=== PATIENT | male | born 1970 | race Hispanic/Latino ===

== ENCOUNTER 2019-10-07 21:09 | Inpatient (IN) | payer SELFPAY ==
[~2019-10-07] VITALS: Ht 170.2 cm; Wt 70.3 kg
[2019-10-07] MEDS ORDERED: ACETAMINOPHEN 325 MG TAB PO STA (21:24)
[2019-10-07] MEDS ORDERED: ASPIRIN 81 MG CHEW TAB PO ONE ×2 (21:30→22:30)
[2019-10-07 21:50] LABS: BASOPHILS # (AUTO) 0.1 (0.0-0.1); BASOPHILS % 0.4 % (0.0-1.0); EOSINOPHILS # (AUTO) 0.1 (0.0-0.4); EOSINOPHILS % 0.3 % (0.0-6.0); HEMATOCRIT 50.6 % (38.2-49.6); HEMOGLOBIN 17.2 g/dL (14.0-18.0); LYMPHOCYTES # (AUTO) 1.2 (1.0-3.2); LYMPHOCYTES % 6.2 % (18.0-39.1); MEAN CORPUSCULAR HEMOGLOBIN 29.8 pg (28-32); MEAN CORPUSCULAR VOLUME 87.7 fL (81-99); MONOCYTES % 5.1 % (4.4-11.3); NEUTROPHILS # (AUTO) 16.4 (2.1-6.9); NEUTROPHILS % 87.4 % (38.7-80.0); PLATELET COUNT 214 x10e3/uL (140-360); RED BLOOD COUNT 5.77 x10e6/uL (4.3-5.7); RED CELL DISTRIBUTION WIDTH 13.2 % (11.7-14.4)
[2019-10-07 21:55] LABS: AMPHETAMINES SCREEN,URINE NEGATIVE (NEGATIVE); BENZODIAZEPINES SCREEN,URINE NEGATIVE (NEGATIVE); BILIRUBIN,URINE NEGATIVE (NEGATIVE); CLARITY,URINE SL CLOUDY (CLEAR); COLOR,URINE STRAW (YELLOW); KETONES,URINE NEGATIVE (NEGATIVE); LEUKOCYTE ESTERASE ,URINE NEGATIVE (NEGATIVE); NITRITE,URINE NEGATIVE (NEGATIVE); PHENCYCLIDINE SCREEN,URINE NEGATIVE (NEGATIVE); PROTEIN,URINE DIPSTICK TRACE (NEGATIVE); URINE UROBILINOGEN 0.2 mg/dL (0.2 - 1)
[2019-10-07 22:05] LABS: BACTERIA,URINE FEW /HPF; EPITHELIAL CELLS,URINE FEW /LPF; MUCUS,URINE MODERATE (RARE)
[2019-10-07 22:12] LABS: ALANINE AMINOTRANSFERASE 10 IU/L (0-55); ALBUMIN 3.6 g/dL (3.5-5.0); ALBUMIN/GLOBULIN RATIO 0.8 (0.8-2.0); ALKALINE PHOSPHATASE 76 IU/L (40-150); ANION GAP 11.8 mmol/L (8-16); BLOOD UREA NITROGEN 7 mg/dL (7-26); BUN/CREATININE RATIO 8 (6-25); CALCIUM 9.5 mg/dL (8.4-10.2); CARBON DIOXIDE 27 mmol/L (22-29); CHLORIDE 100 mmol/L (98-107); CREATINE KINASE 54 IU/L (30-200); EST GLOMERULAR FILTRATION RATE > 60 ML/MIN (60-); GLUCOSE 116 mg/dL (74-118); LIPASE 7 U/L (8-78); POTASSIUM 3.8 mmol/L (3.5-5.1); SODIUM 135 mmol/L (136-145)
[2019-10-07] MEDS ORDERED: SODIUM CHLORIDE 0.9% 1000ML 1,000 ML IV SCH (22:15)
[2019-10-07 22:18] LABS: STREPTOCOCCUS GRP A ANTIGEN NEGATIVE (NEGATIVE)
[2019-10-07] MEDS: ONDANSETRON HCL INJ 2MG/ML 2ML 2 MG/ML VIAL IV PRN (22:48)
[2019-10-07] MEDS: MORPHINE SULFATE INJ 4 MG/ML INJ 1ML IV PRN (22:49)
[2019-10-07] MEDS: PIPER-TAZ 3.375 GM 50 ML IV SCH (22:50)
--- NOTE | 2019-10-07 22:54 | NUR ---
ER MD AND PRIMARY RN NOTIFIED AND AWARE OF LAB RESULTS; FLU A & B POSITIVE. NO NEW ORDERS AT THIS TIME.
[2019-10-07 22:58] LABS: INFLUENZAE A&B ANTIGEN (RAPID) POSITIVE FLU A&B (NEGATIVE)
--- NOTE | 2019-10-07 23:23 | Diagnostic Imaging Report ---
EXAMINATION: CHEST SINGLE (PORTABLE) INDICATION: Chest pain. COMPARISON: None FINDINGS: TUBES and LINES: None. LUNGS: Lungs are well inflated. Mild bronchial thickening. No evidence of pneumonia or pulmonary edema. PLEURA: No pleural effusion or pneumothorax. HEART AND MEDIASTINUM: The cardiomediastinal silhouette is unremarkable. BONES AND SOFT TISSUES: No acute osseous lesion. Soft tissues are unremarkable. UPPER ABDOMEN: No free air under the diaphragm. IMPRESSION: Mild bronchial wall thickening, which may represent bronchitis in the appropriate clinical setting. No evidence of pneumonia. Signed by: Dr. Mello Luna MD on 10/07/2019 11:19 PM
[2019-10-08] VITALS (8 sets, daily range): BP systolic 132–139; BP diastolic 75–87
[2019-10-08] MEDS: SODIUM CHLORIDE 0.9% 1000ML 1,000 ML IV SCH ×4 (01:38→21:03)
[2019-10-08] MEDS: OSELTAMIVIR PHOSPHATE 75 MG CAP PO SCH ×3 (01:40→17:00)
[2019-10-08] MEDS ORDERED: SODIUM CHLORIDE 0.9% 1000ML 1,000 ML IV ONE (02:00)
--- NOTE | 2019-10-08 04:38 | NUR ---
Patient transferred to unit from ER via wheelchair. Transferred to bed with minimal assistance, tolerated. Oriented to room and environment. Instructed to call for assistance on the onset of pain or SOB. Call light within reach. Teaching provided on pain and fall/safety.
[2019-10-08] MEDS: PIPER-TAZ 3.375 GM 50 ML IV SCH ×3 (05:18→17:00)
[2019-10-08] MEDS ORDERED: [UNRECOGNIZED DRUG - REMARK] (05:36)
[2019-10-08] MEDS: ONDANSETRON HCL INJ 2MG/ML 2ML 2 MG/ML VIAL IV PRN ×4 (06:19→20:46)
[2019-10-08] MEDS: MORPHINE SULFATE INJ 4 MG/ML INJ 1ML IV PRN ×4 (06:19→20:46)
--- NOTE | 2019-10-08 06:42 | NUR ---
Spoke with Dr Beckman, will see patient.
--- NOTE | 2019-10-08 06:45 | NUR ---
Received bedside shift report from off going nurse. Patient is resting in bed. No acute distress noted. Call light within reach. Bed in the lowest position.
--- NOTE | 2019-10-08 07:05 | NUR ---
Bedside report and walking rounds completed with oncoming nurse. Patient in bed with call light within reach. No issues or concerns noted. Bed locked and lowest position.
[2019-10-08 07:47] LABS: BASOPHILS # (AUTO) 0.1 (0.0-0.1); BASOPHILS % 0.4 % (0.0-1.0); EOSINOPHILS # (AUTO) 0.1 (0.0-0.4); EOSINOPHILS % 0.6 % (0.0-6.0); HEMATOCRIT 48.3 % (38.2-49.6); HEMOGLOBIN 16.3 g/dL (14.0-18.0); LYMPHOCYTES # (AUTO) 1.1 (1.0-3.2); LYMPHOCYTES % 6.7 % (18.0-39.1); MEAN CORPUSCULAR HEMOGLOBIN 29.7 pg (28-32); MEAN CORPUSCULAR HGB CONC 33.7 g/dL (31-35); MEAN CORPUSCULAR VOLUME 88.1 fL (81-99); MONOCYTES # (AUTO) 1.1 (0.2-0.8); MONOCYTES % 7.1 % (4.4-11.3); NEUTROPHILS # (AUTO) 13.3 (2.1-6.9); NEUTROPHILS % 84.7 % (38.7-80.0); PLATELET COUNT 184 x10e3/uL (140-360); RED BLOOD COUNT 5.48 x10e6/uL (4.3-5.7); RED CELL DISTRIBUTION WIDTH 13.2 % (11.7-14.4)
[2019-10-08 08:28] LABS: ALANINE AMINOTRANSFERASE 403 IU/L (0-55); ALBUMIN 2.8 g/dL (3.5-5.0); ALBUMIN/GLOBULIN RATIO 0.7 (0.8-2.0); ALKALINE PHOSPHATASE 127 IU/L (40-150); ANION GAP 11.1 mmol/L (8-16); BLOOD UREA NITROGEN 7 mg/dL (7-26); BUN/CREATININE RATIO 9 (6-25); CALCIUM 8.7 mg/dL (8.4-10.2); CARBON DIOXIDE 27 mmol/L (22-29); CHLORIDE 102 mmol/L (98-107); CREATININE, SERUM 0.78 mg/dL (0.72-1.25); EST GLOMERULAR FILTRATION RATE > 60 ML/MIN (60-); GLUCOSE 110 mg/dL (74-118); POTASSIUM 4.1 mmol/L (3.5-5.1); SODIUM 136 mmol/L (136-145)
[2019-10-08 09:31] LABS: CREATINE KINASE MB 1.7 ng/mL (0-5.0)
[2019-10-08 11:18] LABS: ALBUMIN 2.7 g/dL (3.5-5.0); BILIRUBIN,DIRECT 4.8 mg/dL (0.0-0.5)
[2019-10-08 11:21] LABS: AMYLASE 71 U/L (25-125); LIPASE 50 U/L (8-78)
--- NOTE | 2019-10-08 12:12 | Diagnostic Imaging Report ---
EXAM: Right upper quadrant abdominal ultrasound INDICATION: Elevated bilirubin COMPARISON: None. TECHNIQUE: Transverse and longitudinal images of the right upper quadrant abdomen were obtained FINDINGS: Liver: Size: 17.7 cm in the right midclavicular line, mildly enlarged Appearance: Normal echogenicity, smooth contour Mass: No focal masses Gallbladder: There is a 2.2 cm echogenic calculus in the gallbladder as well as dependent layering sludge. The gallbladder wall measures 4 mm. No pericholecystic fluid or gallbladder distention. Positive sonographic Bauer's sign. Bile Ducts: Intrahepatic Ducts: No dilatation Extrahepatic Ducts: Common bile duct measures 3 mm Pancreas: Not visualized due to overlying bowel gas. Kidney: The right kidney measures 10.0 cm without evidence of hydronephrosis or stone. Vessels: Aorta: Visualized portions are normal Inferior Vena Cava: Visualized portions are normal Main Portal Vein: Not well-visualized. Free Fluid: No ascites or pleural effusion IMPRESSION: Cholelithiasis and sonographic findings suggestive of acute cholecystitis. Mild hepatomegaly. Signed by: Alfredo Deng MD on 10/08/2019 12:09 PM
--- NOTE | 2019-10-08 19:08 | NUR ---
Bedside shift report given to oncoming nurse. Patient is resting in bed. No acute distress noted. SCDs applied as ordered by Dr. Raymond. Call light within reach. Bed in the lowest position.
--- NOTE | 2019-10-08 19:09 | NUR ---
Received change of shift report from AM nurse. Walking rounds completed.
--- NOTE | 2019-10-08 19:45 | NUR ---
Patient taken off the floor for MRI.
--- NOTE | 2019-10-08 20:15 | NUR ---
Patient returned to the floor. Requested pain and nausea meds for pain.
--- NOTE | 2019-10-08 20:41 | History and Physical ---
HISTORY OF PRESENT ILLNESS: This is a 49-year-old gentleman, who comes in with abdominal pain in right upper quadrant, comes in with chest pain like symptoms. Cardiology consult was done. The patient is admitted to the hospital with flu positive and also had elevated bilirubin suggestive of acute cholecystitis and surgical consult has been ordered. PAST MEDICAL HISTORY: Noncontributory. PAST SURGICAL HISTORY: Noncontributory. SOCIAL HISTORY: Positive for history of cocaine, stays when the pain is unbearable, the patient took 1 line of cocaine for pain only apparently. Drug abuse. No EtOH. No smoking history. REVIEW OF SYSTEMS: Positive for chest pain. Positive for shortness of breath. Positive for nausea. No vomiting. No diarrhea. No constipation. No rectal bleeding. No hematochezia. No hematemesis. Positive for abdominal pain. FAMILY HISTORY: Noncontributory. PHYSICAL EXAMINATION: VITAL SIGNS: Temperature is 99.0, pulse of 68, respirations of 20, blood pressure is 138/75, pulse oximetry of 99%. HEENT: The patient has icterus. CVS: S1 and S2 normal. Regular rhythm. ABDOMEN: Tender in the right upper quadrant. EXTREMITIES: No clubbing, no cyanosis, no edema. LABORATORY VALUES: White count is 18,000, hemoglobin 17.2, hematocrit of 40.6, neutrophil count is 87.4. Chemistries; lactic acid was 2.4, down to 2.2. AST and ALT 351 and 403, alkaline phosphatase is 127. Toxicology; positive for cocaine. Urine was moderate amount of mucus. Serology positive for type A and B flu and cocaine positive. MICROBIOLOGY: Throat culture is pending. ASSESSMENT: Mr. Raj Sher with: 1. Acute cholecystitis. 2. Type A and type B flu. 3. Cocaine abuse and chest pain. Cardiology consult was ordered. Surgical consult will be ordered. MRCP will be ordered to rule out stone in the pancreatic and common bile duct. Continue to monitor the patient. The patient is on Tamiflu. Further recommendation per clinical course. We will continue to monitor the patient along with consultants. MD LUIZ Babin/EMMANUEL /[id number]
--- NOTE | 2019-10-08 21:00 | NUR ---
Patient received pain and nausea meds. Gen pain =7. Continue monitor.
--- NOTE | 2019-10-08 21:22 | Diagnostic Imaging Report ---
EXAM: MRI MRCP WO DATE: 10/08/2019 6:14 PM Time stamp on exam: INDICATION: Abnormal findings on ultrasound. COMPARISON: Same the right upper quadrant ultrasound. TECHNIQUE: MRCP protocol performed using1.5 Robina. Sequences obtained include axial T2 FRFSE FS, coronal and axial T2 SSFSE, SSFSE coronal spins. FINDINGS: Bibasilar dependent atelectasis. 1.5 cm T2 hyperintense right hepatic lobe lesion (series 5, image 31), could represent a cyst, however cannot be fully characterized without intravenous contrast. 2.3 cm gallstone in gallbladder neck. The gallbladder is distended and there is gallbladder wall thickening. Small amount of peripancreatic fluid. Common bile duct is within normal limits. No splenomegaly. Pancreas is grossly unremarkable. No ductal dilatation. No hydronephrosis. Left inferior pole parapelvic cyst. Visualized bowel loops are grossly unremarkable. No evidence of bowel obstruction. IMPRESSION: 2.3 cm gallstone in gallbladder neck along with wall thickening and pericholecystic fluid, highly concerning for acute cholecystitis. No common bile duct dilatation. Signed by: Dr. Dipesh Luque MD on 10/08/2019 9:19 PM
[2019-10-09] VITALS (7 sets, daily range): BP systolic 102–116; BP diastolic 56–72
[2019-10-09] MEDS: ONDANSETRON HCL INJ 2MG/ML 2ML 2 MG/ML VIAL IV PRN ×5 (00:30→23:00)
[2019-10-09] MEDS: MORPHINE SULFATE INJ 4 MG/ML INJ 1ML IV PRN ×5 (00:30→23:00)
[2019-10-09] MEDS: PIPER-TAZ 3.375 GM 50 ML IV SCH ×4 (05:49→17:37)
--- NOTE | 2019-10-09 06:42 | NUR ---
Bedside shift report received from night nurse. Patient is resting in bed. No acute distress noted. Call light within reach. Bed in the lowest position.
[2019-10-09 06:43] LABS: BASOPHILS # (AUTO) 0.1 (0.0-0.1); BASOPHILS % 0.3 % (0.0-1.0); EOSINOPHILS # (AUTO) 0.2 (0.0-0.4); EOSINOPHILS % 1.1 % (0.0-6.0); HEMATOCRIT 44.5 % (38.2-49.6); LYMPHOCYTES # (AUTO) 1.3 (1.0-3.2); LYMPHOCYTES % 6.9 % (18.0-39.1); MEAN CORPUSCULAR HEMOGLOBIN 29.5 pg (28-32); MEAN CORPUSCULAR HGB CONC 33.7 g/dL (31-35); MEAN CORPUSCULAR VOLUME 87.4 fL (81-99); MONOCYTES # (AUTO) 1.1 (0.2-0.8); PLATELET COUNT 190 x10e3/uL (140-360); RED BLOOD COUNT 5.09 x10e6/uL (4.3-5.7); RED CELL DISTRIBUTION WIDTH 13.3 % (11.7-14.4)
[2019-10-09 07:07] LABS: ALANINE AMINOTRANSFERASE 205 IU/L (0-55); ALBUMIN 2.6 g/dL (3.5-5.0); ALBUMIN/GLOBULIN RATIO 0.7 (0.8-2.0); ALKALINE PHOSPHATASE 135 IU/L (40-150); ANION GAP 10.8 mmol/L (8-16); BLOOD UREA NITROGEN 5 mg/dL (7-26); BUN/CREATININE RATIO 6 (6-25); CALCIUM 8.8 mg/dL (8.4-10.2); CARBON DIOXIDE 24 mmol/L (22-29); CHLORIDE 99 mmol/L (98-107); CREATININE, SERUM 0.77 mg/dL (0.72-1.25); EST GLOMERULAR FILTRATION RATE > 60 ML/MIN (60-); GLUCOSE 92 mg/dL (74-118); MAGNESIUM 1.9 MG/DL (1.3-2.1); POTASSIUM 3.8 mmol/L (3.5-5.1); SODIUM 130 mmol/L (136-145)
[2019-10-09] MEDS ORDERED: BUPIVACAINE HCL 0.5% INJ 30 ML VIAL INJ ONE (07:45)
[2019-10-09] MEDS: OSELTAMIVIR PHOSPHATE 75 MG CAP PO SCH ×2 (08:05→17:37)
--- NOTE | 2019-10-09 08:28 | Progress Note ---
DATE: SUBJECTIVE: A 49-year-old male who came in with acute cholecystitis, type A and B flu positive. The patient underwent an MRCP yesterday to rule out common bile duct stones. The patient is free of stones. Scheduled for Dr. Richter to take his gallbladder out. OBJECTIVE: GENERAL: Alert and oriented x3, still in pain, jaundiced. CVS: S1, S2 normal. Regular rate and rhythm. ABDOMEN: Tender at the right upper quadrant. EXTREMITIES: No clubbing, no cyanosis, no edema. LABORATORY STUDIES: White count is 18,000, hemoglobin of 15, hematocrit of 44.5, neutrophil count is 85. Chemistries pending. Total bilirubin yesterday was 6.8 with AST of 215, ALT of 343. Toxicology positive for urine cocaine, and influenza A and B positive. ASSESSMENT: Mr. Raj Sher with: 1. Acute cholecystitis. Scheduled laparoscopic cholecystectomy today. 2. Type A and type B flu, continue on Tamiflu. 3. Cocaine abuse and chest pain. PLAN: A Cardiology consult has been done. Look if his troponin has been trended to be negative. Further recommendation per clinical course and also to observe the patient after cholecystectomy. MD LUIZ Babin/LEIAL /[id number]
--- NOTE | 2019-10-09 08:36 | NUR ---
Patient off unit for procedure at this time.
--- NOTE | 2019-10-09 09:08 | Consultation ---
DATE OF CONSULTATION: 10/09/2019 HISTORY OF PRESENT ILLNESS: The patient is a 49-year-old male, presents with complaints of epigastric abdominal pain with chest pain, admitted to the hospital 2 days ago with chest pain. He had cardiac evaluation, which was negative for cardiac disease, however, he was found to have gallstones and also developed elevated bilirubin. MRCP was done, which revealed gallstone in the gallbladder neck, but no common bile duct stones. The patient says his pain is somewhat less now. He has had epigastric pain off and on for quite a while, but never this severe. PAST MEDICAL HISTORY: Unremarkable. He denies chronic medical problems. PAST SURGICAL HISTORY: He has not had previous surgery. ALLERGIES: THERE ARE NO KNOWN ALLERGIES. MEDICATIONS: No current medications. FAMILY HISTORY: Noncontributory. SOCIAL HISTORY: The patient does not smoke cigarettes or drink alcohol. REVIEW OF SYSTEMS: As stated above, otherwise was negative. PHYSICAL EXAMINATION: GENERAL: The patient is awake and alert, in no distress. VITAL SIGNS: Normal with no tachycardia, but temperature 99.9. HEENT: Sclerae is not icteric. NECK: Has no masses. LUNGS: Equal breath sounds, are clear bilaterally. CARDIAC: Regular rate and rhythm with no murmur. ABDOMEN: Tender in the epigastrium and right upper quadrant. There is no distention, no mass, no organomegaly. EXTREMITIES: Have no edema. NEUROLOGIC: Grossly intact. LABORATORY TESTS: The white blood cell count is 18.8, which is the same as it was on admission, slightly elevated. Hemoglobin and hematocrit are normal. Chemistries; the bilirubin was 6.8 yesterday with normal on admission. ASSESSMENT: A 49-year-old male with acute cholecystitis and cholelithiasis, currently is also tested positive for the flu. He has been on treatment for this. PLAN: Laparoscopic cholecystectomy. Procedure has been explained to the patient including risks, benefits, and alternatives. He understands. He has had the opportunity to ask questions. He is aware of the possible need for open surgery. Thank you for asking me to see Mr. hSer. MD TIARA Padilla/EMMANUEL /[id number]
[2019-10-09] MEDS ORDERED: SUGAMMADEX SODIUM 200 MG/2 ML VIAL IV ONE (09:28)
--- NOTE | 2019-10-09 09:53 | NUR ---
GAVE PACKET OF INFORMATION WITH COMMUNITY RESOURCES FOR ASSISTANCE WITH LOW TO NO INCOME TO PATIENT. RESOURCES THAT PATIENT MAY BE ABLE TO FOLLOW UP UPON DISCHARGE. PT EDUCATED ON EACH RESOURCE AND UNDERSTANDING HOW TO FOLLOW UP TO SEE IF QUALIFIED FOR EACH RESOURCE.
--- NOTE | 2019-10-09 10:40 | NUR ---
Patient back to room at this time, he is in stable condition.
[2019-10-09] MEDS: SODIUM CHLORIDE 0.9% 1000ML 1,000 ML IV SCH ×3 (10:50→20:02)
--- NOTE | 2019-10-09 11:04 | Operative Report ---
DATE OF PROCEDURE: 10/09/2019 SURGEON: Vasu Richter MD PREOPERATIVE DIAGNOSES: Acute cholecystitis, cholelithiasis. POSTOPERATIVE DIAGNOSES: Acute cholecystitis, cholelithiasis. PROCEDURES: Diagnostic laparoscopy, laparoscopic cholecystectomy. SENIOR INTERIOR DESIGNER: None. ANESTHESIA: General endotracheal. INDICATIONS AND FINDINGS: The patient is a 49-year-old male, who was admitted to the hospital with complaints of chest pain, epigastric pain. Workup revealed acute cholecystitis with cholelithiasis. At Surgery, based on the gallbladder was distended and edematous with adherent small bowel and colon over the neck and fundus of the gallbladder. There was a large stone impacting the gallbladder neck. TECHNIQUE: After adequate general endotracheal anesthesia, the patient in supine position, the abdomen was prepped and draped in sterile fashion with ChloraPrep solution. Skin in the umbilicus was infiltrated with 0.5% Marcaine. Incision was made in the umbilicus. Abdominal wall was elevated and Veress needle was introduced. Pneumoperitoneum was then created. A 10 mm trocar and cannula was then passed through the umbilical wound. Laparoscopic camera was introduced. Initial laparoscopy revealed inflammatory process to right upper quadrant. A 10 mm trocar and cannula were placed in the epigastrium and two 5 mm trocars and cannulas were placed in the right upper quadrant, these were placed under direct vision. There was small bowel as well as colon adherent over the acutely inflamed gallbladder, is mostly fibrinous adhesions, these were bluntly broken up. Care was taken not to injure the bowel and the small bowel and colon retracted away from the gallbladder, which was tense and edematous, and inflamed gallbladder was decompressed with a needle. The fundus was then grasped retracted superiorly. Neck of the gallbladder was grasped, retracted laterally. There was a large stone in the gallbladder neck, which was pushed back into the gallbladder fundus. Peritoneum over the neck of the gallbladder was incised. The gallbladder/cystic duct junction was dissected free. Cystic artery was also dissected free. The neck of the gallbladder completely dissected free. Cystic duct was divided between hemoclips with three clips being left on the common bile duct side. Cystic artery was also divided between hemoclips close to the gallbladder. There was a posterior branch of cystic artery was also divided between hemoclips. The gallbladder was dissected free from the liver using scissors and electrocautery. Once it was entirely free, it was placed into an Endopouch and brought through the epigastric cannula. There was one large stone. The gallbladder bed was inspected for hemostasis, which was seen to be adequate, it was irrigated with saline. All fluid aspirated and inspected for hemostasis, which was seen to be adequate. Instruments and cannulas were removed. Pneumoperitoneum was evacuated. Wounds were then closed. Fascia in the umbilical and epigastric wound closed with 0 Vicryl. Skin to all wounds closed with danika. Sterile dressings applied to each wound. The patient tolerated the procedure well. Estimated blood loss was 75 mL. There were no complications. All counts were correct. The patient was taken to the recovery room in satisfactory condition. MD TIARA Padilla/MODL /[id number]
--- NOTE | 2019-10-09 11:06 | NUR ---
RD attempted to assess pt. Pt has gone to OR.
[2019-10-09] MEDS: HYDROCODONE/APAP 7.5MG-325MG 1 EA TAB PO PRN ×2 (14:50→20:02)
[2019-10-09] MEDS ORDERED: EYE LUBRICANT OPTH OINT 3.5GM TUBE OP ONE (18:35)
[2019-10-09] MEDS ORDERED: ROCURONIUM BROMIDE 10 MG/ML 5ML VIAL IV ONE (18:35)
[2019-10-09] MEDS ORDERED: PROPOFOL IV EMULSION 10 MG/ML 20 ML VIAL ONE (18:35)
[2019-10-09] MEDS ORDERED: LIDOCAINE HCL 2% LOCAL INJ 5 ML SDV VIAL INJ ONE (18:35)
[2019-10-09] MEDS ORDERED: SEVOFLURANE INHAL SOLN 250 ML PEN BTL ONE (18:35)
[2019-10-09] MEDS ORDERED: LIDOCAINE HCL 2% JELLY 5 ML TUBE ONE (18:35)
[2019-10-09] MEDS ORDERED: ONDANSETRON HCL INJ 2MG/ML 2ML 2 MG/ML VIAL ONE (18:35)
[2019-10-09] MEDS ORDERED: FENTANYL CITRATE/PF 100MCG/2 ML INJ ONE (18:58)
[2019-10-09] MEDS ORDERED: MIDAZOLAM HCL 2 MG/2 ML VIAL ONE (18:58)
--- NOTE | 2019-10-09 19:36 | NUR ---
Bedside shift report given to oncoming nurse. Patient is resting in bed. No acute distress noted. Call light within reach. Bed in the lowest position.
--- NOTE | 2019-10-09 19:52 | NUR ---
Received change of shift report from AM nurse. Walking rounds completed.
[2019-10-10] VITALS (7 sets, daily range): BP systolic 91–109; BP diastolic 47–60
[2019-10-10] MEDS: MORPHINE SULFATE INJ 4 MG/ML INJ 1ML IV PRN ×6 (03:08→22:43)
[2019-10-10] MEDS: ONDANSETRON HCL INJ 2MG/ML 2ML 2 MG/ML VIAL IV PRN ×4 (03:09→22:43)
[2019-10-10] MEDS: PIPER-TAZ 3.375 GM 50 ML IV SCH ×4 (05:32→21:26)
[2019-10-10] MEDS: HYDROCODONE/APAP 7.5MG-325MG 1 EA TAB PO PRN ×3 (05:39→13:45)
[2019-10-10 06:33] LABS: BASOPHILS # (AUTO) 0.1 (0.0-0.1); BASOPHILS % 0.5 % (0.0-1.0); EOSINOPHILS # (AUTO) 0.2 (0.0-0.4); EOSINOPHILS % 1.4 % (0.0-6.0); HEMATOCRIT 40.5 % (38.2-49.6); HEMOGLOBIN 13.3 g/dL (14.0-18.0); LYMPHOCYTES # (AUTO) 1.4 (1.0-3.2); LYMPHOCYTES % 10.7 % (18.0-39.1); MEAN CORPUSCULAR HEMOGLOBIN 28.9 pg (28-32); MEAN CORPUSCULAR HGB CONC 32.8 g/dL (31-35); MONOCYTES # (AUTO) 0.9 (0.2-0.8); MONOCYTES % 6.7 % (4.4-11.3); NEUTROPHILS # (AUTO) 10.6 (2.1-6.9); NEUTROPHILS % 80.1 % (38.7-80.0); PLATELET COUNT 202 x10e3/uL (140-360); RED CELL DISTRIBUTION WIDTH 13.4 % (11.7-14.4)
[2019-10-10 06:51] LABS: ALANINE AMINOTRANSFERASE 114 IU/L (0-55); ALBUMIN 2.1 g/dL (3.5-5.0); ALBUMIN/GLOBULIN RATIO 0.6 (0.8-2.0); ALKALINE PHOSPHATASE 123 IU/L (40-150); ANION GAP 9.7 mmol/L (8-16); BLOOD UREA NITROGEN 6 mg/dL (7-26); BUN/CREATININE RATIO 8 (6-25); CALCIUM 8.3 mg/dL (8.4-10.2); CARBON DIOXIDE 25 mmol/L (22-29); CHLORIDE 102 mmol/L (98-107); CREATININE, SERUM 0.71 mg/dL (0.72-1.25); EST GLOMERULAR FILTRATION RATE > 60 ML/MIN (60-); GLUCOSE 81 mg/dL (74-118); POTASSIUM 3.7 mmol/L (3.5-5.1); SODIUM 133 mmol/L (136-145)
--- NOTE | 2019-10-10 07:57 | Progress Note ---
DATE: SUBJECTIVE: A 49-year-old gentleman, who came in with chest pain and also was found to have sepsis. The patient had type A, type B flu positive. Also, was found to have acute cholecystitis. Antibiotics were started. Tamiflu was started. The patient was taken down to surgery by Dr. Richter yesterday. Successful cholecystectomy. Still has some pain. No chest pains. No shortness of breath at this time. OBJECTIVE: VITAL SIGNS: Temperature is 98.8, pulse of 66, respirations of 18, blood pressure is 92/47, pulse oximetry of 98%. HEENT: Normocephalic and atraumatic. Icterus is down. CVS: S1 and S2 normal. Regular rate and rhythm. ABDOMEN: Nontender, nondistended. Soft. EXTREMITIES: No clubbing, no cyanosis, no edema. Trocar sites are normal. ASSESSMENT: Mr. Raj Prescott with: 1. Acute cholecystitis, status post surgery. 2. Type A, type B influenza. 3. History of cocaine abuse. 4. History of fever. The patient [place] [address], hemoglobin of 13.3, hematocrit of 40. Chemistries are very stable. Creatinine 0.71. PLAN: Continue to monitor the patient for pain and check his laboratory values. Plan to discharge tomorrow depending on his clinical status. Further recommendation per clinical course and his bilirubin is down to 3.0. Additional diagnosis includes acute sepsis. MD LUIZ Babin/MODL /[id number]
[2019-10-10] MEDS: OSELTAMIVIR PHOSPHATE 75 MG CAP PO SCH ×2 (09:35→18:09)
[2019-10-10] MEDS: SODIUM CHLORIDE 0.9% 1000ML 1,000 ML IV SCH ×2 (13:50→14:22)
--- NOTE | 2019-10-10 16:54 | NUR ---
Nutrition Intervention Note RD Recommendation(s) for Physician: -Recommend Ensure Enlive BID for added nutrition -Continue regular diet Plan of Care: RD following, monitoring for tolerance and adequacy Nutrition reason for involvement: Nutrition Risk Trigger MST 3 RD Assessment (10/10/19) Pt is a 49 year old male admitted with chest pain and sepsis. Pt also was positive for the flu and is on droplet isolation. RD called pts bedside phone. Pt reports eating <50% of his meals for the past 5 days. Pt also reported he had weighed 200 lbs a month ago and now weighs 175 lbs. However, pt has a weight of 154 lbs in chart. There are no previous weights in chart; therefore, unable to accurately assess or verify weight status at this time. Pt also reports N/V. Recommend Ensure Enlive BID for added nutrition. Provided recommendation to RN. Will continue to monitor. Principal Problems/Diagnoses: chest pain and sepsis PMH: none I/O: 240/300 GI: soft, non-tender abdomen Skin: intact Labs: (10/09) Na 133, BUN 6, Cr 0.71, Ca 8.3 Meds: antibiotic, zofran Ht: 67 inches Wt: 154 lbs BMI: 24.2 kg/m2 IBW: 148 lbs Malnutrition Evaluation (10/10/19) The patient does not meet criteria for a specified degree of malnutrition at this time. Will re-evaluate at follow-up as appropriate. Energy intake: <50% of estimated energy requirements for 5 days per pt report Weight loss: Unable to accurately assess Fat loss: unable to evaluate, Muscle loss: unable to evaluate Supporting Evidence: Fluid accumulation: no edema per MD note Functional Status: unable to evaluate Nutrition Prescription (Diet Order): Regular Estimated Nutritional Needs: 7952-4384 calories/day (25-35 kcal/kg CBW) 70-105 g protein/day (1-1.5 g pro/kg CBW) Diet Adequacy: Not meeting calorie needs, Not meeting protein needs per pt report Tolerance: Pt reports N/V Diet Education Needs Assessment: Diet education not indicated; patient on regular diet. Nutrition Care Level: moderate Nutrition Diagnosis: Inadequate energy intake related to decreased ability to consume sufficient energy as evidenced by pt reports eating <50% of meals for the past 5 days Goal: Patient will meet 75-100% of estimated needs by follow up Progress: N/A Interventions: -General healthful diet, Commercial beverage Monitoring/Evaluation: -Total energy intake, Total protein intake, Liquid supplement, Weight change Signed: Ira Rubin RD, LD
--- NOTE | 2019-10-10 19:25 | NUR ---
received report from day nurse. patient is resting comfortably in the bed. bed is in lowest position and call light is within reach. patient denies pain or discomfort. will continue to monitor patient.
[2019-10-11] VITALS (8 sets, daily range): BP systolic 99–135; BP diastolic 54–77
[2019-10-11] MEDS: PIPER-TAZ 3.375 GM 50 ML IV SCH ×4 (01:57→20:30)
[2019-10-11] MEDS: SODIUM CHLORIDE 0.9% 1000ML 1,000 ML IV SCH ×2 (03:00→12:13)
[2019-10-11 06:32] LABS: BASOPHILS # (AUTO) 0.1 (0.0-0.1); BASOPHILS % 0.4 % (0.0-1.0); EOSINOPHILS # (AUTO) 0.3 (0.0-0.4); EOSINOPHILS % 1.9 % (0.0-6.0); HEMATOCRIT 43.5 % (38.2-49.6); HEMOGLOBIN 14.2 g/dL (14.0-18.0); MEAN CORPUSCULAR HEMOGLOBIN 28.8 pg (28-32); MEAN CORPUSCULAR HGB CONC 32.6 g/dL (31-35); MEAN CORPUSCULAR VOLUME 88.2 fL (81-99); MONOCYTES # (AUTO) 0.8 (0.2-0.8); MONOCYTES % 6.1 % (4.4-11.3); NEUTROPHILS # (AUTO) 10.7 (2.1-6.9); NEUTROPHILS % 83.1 % (38.7-80.0); PLATELET COUNT 274 x10e3/uL (140-360); RED BLOOD COUNT 4.93 x10e6/uL (4.3-5.7); RED CELL DISTRIBUTION WIDTH 13.2 % (11.7-14.4)
[2019-10-11 06:47] LABS: ANION GAP 11.5 mmol/L (8-16); BLOOD UREA NITROGEN 6 mg/dL (7-26); BUN/CREATININE RATIO 8 (6-25); CALCIUM 8.6 mg/dL (8.4-10.2); CARBON DIOXIDE 26 mmol/L (22-29); CHLORIDE 101 mmol/L (98-107); CREATININE, SERUM 0.74 mg/dL (0.72-1.25); EST GLOMERULAR FILTRATION RATE > 60 ML/MIN (60-); GLUCOSE 94 mg/dL (74-118); POTASSIUM 3.5 mmol/L (3.5-5.1); SODIUM 135 mmol/L (136-145)
--- NOTE | 2019-10-11 07:10 | NUR ---
report given to morning nurse. bedside shift report complete. patient is resting in bed. bed is in lowest position and call light is within reach.
[2019-10-11] MEDS: OSELTAMIVIR PHOSPHATE 75 MG CAP PO SCH ×2 (08:18→18:30)
[2019-10-11] MEDS ORDERED: BISACODYL 10 MG SUPP PR PRN (09:00)
--- NOTE | 2019-10-11 10:01 | Progress Note ---
DATE: SUBJECTIVE: This patient came into the hospital with flu type A and type B. The patient also had acute cholecystitis, status post cholecystectomy. The patient is still feeling some abdominal pain and also some chest congestion. OBJECTIVE: VITAL SIGNS: Temperature is 98.9, pulse of 62, respirations of 18, blood pressure is 99/54, pulse oximetry of 92%. HEENT: Normocephalic and atraumatic. Pupils are reactive. CVS: S1 and S2 are normal. Regular rate and rhythm. ABDOMEN: Slightly distended. EXTREMITIES: No clubbing, no cyanosis, no edema. LABORATORY VALUES: White count is 12.93, neutrophil count is 83, lymphocytes of 8. Chemistries show sodium 135, BUN of 6, creatinine of 0.74. ALT and AST have normalized. ASSESSMENT: Mr. Raj Sher with: 1. Cholecystitis, status post laparoscopic cholecystectomy. 2. History of type A and type B flu. Continue oseltamivir. 3. Abdominal pain. Continue monitoring it. 4. Leukocytosis with history of flu. Continue with medications. We will keep the patient in- house and not discharge him today in lieu of his abdominal pain and also elevated white count. Further recommendation per clinical course. MD LUIZ Babin/EMMANUEL /[id number]
[2019-10-11] MEDS: MORPHINE SULFATE INJ 4 MG/ML INJ 1ML IV PRN ×2 (15:39→20:38)
[2019-10-11] MEDS: ONDANSETRON HCL INJ 2MG/ML 2ML 2 MG/ML VIAL IV PRN ×2 (15:39→20:38)
[2019-10-12] VITALS (8 sets, daily range): BP systolic 105–123; BP diastolic 65–76
[2019-10-12] MEDS: PIPER-TAZ 3.375 GM 50 ML IV SCH ×4 (01:34→19:47)
[2019-10-12] MEDS: SODIUM CHLORIDE 0.9% 1000ML 1,000 ML IV SCH (02:00)
[2019-10-12] MEDS: ONDANSETRON HCL INJ 2MG/ML 2ML 2 MG/ML VIAL IV PRN ×4 (03:43→23:50)
[2019-10-12] MEDS: MORPHINE SULFATE INJ 4 MG/ML INJ 1ML IV PRN ×4 (03:43→23:50)
--- NOTE | 2019-10-12 06:42 | NUR ---
PATIENT IS RESTING IN BED. NO SIGNS OF DISTRESS NOTED. BED IS IN LOWEST POSITION AND CALL LIGHT IS WITHIN REACH.
[2019-10-12 08:05] LABS: BASOPHILS % 0.4 % (0.0-1.0); EOSINOPHILS # (AUTO) 0.4 (0.0-0.4); EOSINOPHILS % 3.6 % (0.0-6.0); HEMATOCRIT 40.1 % (38.2-49.6); HEMOGLOBIN 13.3 g/dL (14.0-18.0); LYMPHOCYTES # (AUTO) 1.6 (1.0-3.2); LYMPHOCYTES % 14.7 % (18.0-39.1); MEAN CORPUSCULAR HEMOGLOBIN 29.1 pg (28-32); MEAN CORPUSCULAR HGB CONC 33.2 g/dL (31-35); MEAN CORPUSCULAR VOLUME 87.7 fL (81-99); MONOCYTES # (AUTO) 0.9 (0.2-0.8); MONOCYTES % 8.2 % (4.4-11.3); NEUTROPHILS % 72.7 % (38.7-80.0); PLATELET COUNT 306 x10e3/uL (140-360); RED BLOOD COUNT 4.57 x10e6/uL (4.3-5.7); RED CELL DISTRIBUTION WIDTH 13.2 % (11.7-14.4)
[2019-10-12 08:22] LABS: ALANINE AMINOTRANSFERASE 55 IU/L (0-55); ALBUMIN/GLOBULIN RATIO 0.5 (0.8-2.0); ALKALINE PHOSPHATASE 238 IU/L (40-150); ANION GAP 11.7 mmol/L (8-16); BLOOD UREA NITROGEN 5 mg/dL (7-26); BUN/CREATININE RATIO 7 (6-25); CALCIUM 8.2 mg/dL (8.4-10.2); CARBON DIOXIDE 26 mmol/L (22-29); CHLORIDE 103 mmol/L (98-107); CREATININE, SERUM 0.71 mg/dL (0.72-1.25); EST GLOMERULAR FILTRATION RATE > 60 ML/MIN (60-); GLUCOSE 104 mg/dL (74-118); POTASSIUM 3.7 mmol/L (3.5-5.1); SODIUM 137 mmol/L (136-145)
[2019-10-12] MEDS: OSELTAMIVIR PHOSPHATE 75 MG CAP PO SCH ×2 (08:42→16:54)
--- NOTE | 2019-10-12 10:39 | Progress Note ---
DATE: SUBJECTIVE: A 49-year-old male comes in with acute cholecystitis and also with influenza. Currently feeling better, but still continues abdominal pain. No chest pain. No shortness of breath. OBJECTIVE: VITAL SIGNS: Temperature is 98.4, pulse is 57, respirations of 18, blood pressure is 112/89. HEENT: Normocephalic, atraumatic. CVS: S1 and S2 normal. Regular rate and rhythm. ABDOMEN: Soft. EXTREMITIES: No clubbing, no cyanosis, no edema. Possible bowel sounds. No bowel movements yet by the patient. LABORATORY VALUES: White count is still up to 12.93, hemoglobin 14.2, hematocrit of 43.5. Chemistries; sodium of 135, potassium 3.5. IMAGING STUDIES: No imaging studies were done. ASSESSMENT: Mr. Raj Sher with: 1. Cholecystitis, status post laparoscopic cholecystectomy. 2. Type 2 and type B flu. Continue on oseltamivir. 3. Abdominal pain. Continue monitoring the pain. 4. Leukocytosis. We will continue with current antibiotic in lieu of his abdominal pain and his still elevated white count. We will still keep the patient in the hospital for one more day. Possible discharge tomorrow. MD LUIZ Babin/LEIAL /[id number]
[2019-10-12] MEDS ORDERED: SIMETHICONE 80 MG CHEW PO PRN (17:00)
--- NOTE | 2019-10-12 18:25 | NUR ---
patient resting in bed, On IV fluids, trochar site on abdomen is intact, no distress noted
[2019-10-13] VITALS: BP 120/70
[2019-10-13] MEDS: PIPER-TAZ 3.375 GM 50 ML IV SCH ×2 (01:20→08:03)
[2019-10-13 04:00] VITALS: BP 117/65
[2019-10-13] MEDS: MORPHINE SULFATE INJ 4 MG/ML INJ 1ML IV PRN (05:24)
[2019-10-13] MEDS: ONDANSETRON HCL INJ 2MG/ML 2ML 2 MG/ML VIAL IV PRN (05:24)
[2019-10-13] MEDS: SODIUM CHLORIDE 0.9% 1000ML 1,000 ML IV SCH (06:22)
--- NOTE | 2019-10-13 06:50 | NUR ---
PATIENT IS RESTING IN BED. NO SIGNS OF DISTRESS NOTED. BED IS IN LOWEST POSITION AND CALL LIGHT IS WITHIN REACH.
--- NOTE | 2019-10-13 07:22 | Progress Note ---
DATE: SUBJECTIVE: The patient is a 49-year-old, who came in with acute cholecystitis with flu, type A and type B. the patient is feeling better, status post laparoscopic cholecystectomy, moving around, bowel sounds are positive, flatus is positive. No bowel movement yet. OBJECTIVE: VITAL SIGNS: Temperature is 98.4, T-max of 99.2 yesterday at 2100, respirations of 18, blood pressure is 117/65. HEENT: Normocephalic and atraumatic. Pupils are reactive. CVS: S1 and S2 are normal. Regular rate and rhythm. ABDOMEN: Soft, nontender. EXTREMITIES: No clubbing, no cyanosis, no edema. LABORATORY VALUES: Yesterday's white count is 10.99, trended down. Chemistries; sodium 137, potassium 3.7, and creatine kinase is normal. Total bilirubin had trended down from 6.7 to 1.1. ASSESSMENT: Mr. Raj Sher with: 1. Acute sepsis on arrival. 2. Type A and type B flu positive. 3. Acute cholecystitis, status post laparoscopic cholecystectomy. The patient is doing better, can be discharged home, to be followed with primary care physician. The patient has had 5 days of Tamiflu already, can be discharged without medication. The patient was advised to stay away from cocaine and also to be from any street drugs. Further recommendation per clinical course. We will continue to monitor the patient. MD LUIZ Babin/LEIAL /[id number]
--- NOTE | 2019-10-13 07:30 | NUR ---
PATIENT IS AWAKE, ALERT, AND IN STABLE CONDITION WITH NO S/S OF RESPIRATORY DISTRESS. NO PAIN VOICED. FOUR TROCHAR SITES NOTED TO ABD POST SEBASTIEN; BAND-AID APPLIED OVER SITES. IV FLUIDS INFUSING. CALL LIGHT IS WITHIN REACH, INSTRUCTED TO CALL FOR ASSISTANCE NEEDED.
[2019-10-13 08:19] VITALS: BP 95/65
[2019-10-13 09:12] VITALS: BP 95/65
[2019-10-13 11:00] VITALS: BP 99/70
[2019-10-13] MEDS: HYDROCODONE/APAP 7.5MG-325MG 1 EA TAB PO PRN (12:25)
[2019-10-13 12:51] VITALS: BP 110/72
--- NOTE | 2019-10-13 14:24 | NUR ---
PATIENT SIGNED DISCHARGE PAPERWORK. IV REMOVED WITH TIP INTACT AT 1415.
--- NOTE | 2019-10-13 15:19 | NUR ---
PATIENT DISCHARGE HOME- PATIENT OFF THE UNIT AT 1501 PER WHEELCHAIR ACCOMPANIED BY STAFF MEMBER TO THE FRONT LOBBY. PATIENT IN STABLE CONDITION WITH NO S/S OF RESPIRATORY DISTRESS. NO PAIN VOICED. IV REMOVED AT 1415 WITH TIP INTACT. DISCHARGE TEACHING AND INSTRUCTIONS GIVEN TO THE PATIENT. ALL PERSONAL ITEMS TAKEN WITH THE PATIENT.
== END 2019-10-13 15:01 | disposition home or self-care (01) | DRG 854 ==
LOC: ER 21:09 → ERHOLD 22:22 → MED/SURG3 10-08 04:38 → OBSVTOIN 10-10 09:07
PROVIDERS: ADMIT Family Medicine; ATTEND Family Medicine
PROC: 0FT44ZZ Resection of Gallbladder, Percutaneous Endoscopic Approach (ICD-10-PCS; principal; 2019-10-09 11:00)
DX: A41.9 Sepsis, unspecified organism (principal); K80.00 Calculus of gallbladder with acute cholecystitis without obstruction; J11.1 Influenza due to unidentified influenza virus with other respiratory manifestations; F14.10 Cocaine abuse, uncomplicated
CPT/HCPCS: 36415; 71045; 74181; 76705; 80048; 80053; 80076; 80307; 81001; 82150; 82550; 82553; 83518; 83605; 83690; 83735; 83880; 84484; 85025; 87040; 87070; 87400; 88304; 93005; 93306; 99284; G0378; J2001; J2250; J2270; J2405; J2543; J3010; J7030

== ENCOUNTER 2019-10-23 13:15 | Inpatient (IN) | payer SELFPAY ==
[~2019-10-23] VITALS: Ht 170.2 cm; Wt 71.7 kg
[2019-10-23] VITALS (10 sets, daily range): BP systolic 92–110; BP diastolic 59–70
[~2019-10-23 13:15] MED LIST: [UNRECOGNIZED DRUG - REMARK]
--- OUTSIDE RECORDS SUMMARY | 2019-10-23 13:18 | XMS REPORT ---
Author Author [facility] Organization [facility] Address Unknown Phone Unavailable Care Team Providers Care Coil Maker Name Role Phone Lizette WHITTAKER Unavailable Unavailable Problems This patient has no known problems. Allergies, Adverse Reactions, Alerts This patient has no known allergies or adverse reactions. Medications This patient has no known medications. Results Test Description Test Time Test Comments Text Results Atomic Results Result Comments MRI MRCP WO 2019-10-08 21:01:00 [place] [address] Patient Name: WAYNE DAY MR #: [id number] : 1970 Age/Sex: 49/M Req #: [id number] Adm Physician: HUY WHITTAKER MD Ordered by: ROSA EDGAR MD Report #: [id number] Location: [facility] Room/Bed: [facility] Procedure: [id number] MRI/MRI MRCP WO Exam Date: Exam Time: REPORT STATUS: Signed EXAM: MRI MRCP WO DATE: 10/08/2019 6:14 PM Time stamp on exam: INDICATION: Abnormal findings on ultrasound. COMPARISON: Same the right upper quadrant ultrasound. TECHNIQUE: MRCP protocol performed using1.5 Robina. Sequences obtained include axial T2 FRFSE FS, coronal and axial T2 SSFSE, SSFSE coronal spins. FINDINGS: Bibasilar dependent atelectasis. 1.5 cm T2 hyperintense right hepatic lobe lesion (series 5, image 31), could represent a cyst, however cannot be fully characterized without intravenous contrast. 2.3 cm gallstone in gallbladder neck. The gallbladder is distended and there is gallbladder wall thickening. Small a mount of peripancreatic fluid. Common bile duct is within normal limits. No splenomegaly. Pancreas is grossly unremarkable. No ductal dilatation. No hydronephrosis. Left inferior pole parapelvic cyst. Visualized bowel loops are grossly unremarkable. No evidence of bowel obstruction. IMPRESSION: 2.3 cm gallstone in gallbladder neck along with wall thickening and pericho lecystic fluid, highly concerning for acute cholecystitis. No common bile duct dilatation. Signed by: Dr. Dipesh Jett MD on 10/08/2019 9:19 PM Dictated By: DIPESH JETT MD 18 Transcribed By: ELEAZAR on 10/08/192118 COPY TO: ROSA EDGAR MD LIVER 2019-10-08 12:06:00 [place] [address] Patient Name: WAYNE DAY MR #: [id number] : 1970 Age/Sex: 49/M Req #: [id number] Adm Physician: HUY WHITTAKER MD Ordered by: HUY WHITTAKER MD Report #: [id number] Location: MED/SURG3 Room/Bed: [facility] Procedure: [id number] US/US LIVER Exam Date: 10/08/19 Exam Time: 1058 REPORT STATUS: Signed EXAM: Right upper quadrant abdominal ultrasound INDICATION: Elevated bilirubin COMPARISON: None. TECHNIQUE: Transverse and longitudinal images of the right upper quadrant abdomen were obtained FINDINGS: Liver: Size: 17.7 cm in the right midclavicular line, mildly enlarged Appearance: Normal echogenicity, smooth contour Mass: No focal masses Gallbladder: There is a 2.2 cm echogenic calculus in the gallbladder as well as dependent layering sludge. The gallbladder wall measures 4 mm. No pericholecystic fluid or gallbladder distention. Positive sonographic Bauer's sign. Bile Ducts: Intrahepatic Ducts: No dilatation Extrahepatic Ducts: Common bile duct measures 3 mm Pancreas: Not visualized due to overlying bowel gas. Kidney: The right kidney measures 10.0 cm without evidence of hydronephrosis or stone. Vessels: Aorta: Visualized portions are normal Inferior Vena Cava: Visualized portions are normal Main Portal Vein: Not well-visualized. Free Fluid: No ascites or pleural effusion IMPRESSION: Cholelithiasis and sonographic findings suggestive of acute cholecystitis. Mild hepatomegaly. Signed by: Alicia Narvaez MD on 10/08/2019 12:09 PM Dictated By: ALICIA NARVAEZ MD 1209 Transcribed By: ELEAZAR on 10/08/19 1209 COPY TO: HUY WHITTAKER MD CHEST SINGLE (PORTABLE) 2019-10-07 23:17:00 [place] [address] Patient Name: WAYNE DAY MR #: [id number] : 1970 Age/Sex: 49/M Req #: [id number] Adm Physician: HUY WHITTAKER MD Ordered by: RADHA RHODES DO Report #: [id number] Location: [facility] Room/Bed: [place] [address] Procedure: [id number] DX/CHEST SINGLE (PORTABLE) Exam Date: 10/07/19 Exam Time: 2209 REPORT STATUS: Signed EXAMINATION: CHEST SINGLE (PORTABLE) INDICATION: Chest pain. COMPARISON: None FINDINGS: TUBES and LINES: None. LUNGS: Lungs are well inflated. Mild bronchial thickening. No evidence of pneumonia or pulmonary edema. PLEURA: No pleural effusion or pneumothorax. HEART AND MEDIASTINUM: The cardiomediastinal silhouette is unremarkable. BONES AND SOFT TISSUES: No acute osseous lesion. Soft tissues are unremarkable. UPPER ABDOMEN: No free air under the diaphragm. IMPRESSION: Mild bronchial wall thickening, which may represent bronchitis in the appropriate clinical se tting. No evidence of pneumonia. Signed by: Dr. Gerda Lind MD on 10/07/2019 11:19 PM Dictated By: GERDA LIND MD 18 Transcribed By: ELEAZAR on 10/07/192318 COPY TO: RADHA RHODES DO
[2019-10-23] MEDS ORDERED: ASPIRIN 325 MG TAB PO STA (13:38)
[2019-10-23] MEDS ORDERED: ASPIRIN 81 MG CHEW TAB PO ONE (13:45)
[2019-10-23] MEDS ORDERED: ONDANSETRON HCL INJ 2MG/ML 2ML 2 MG/ML VIAL IV PRN (13:45)
[2019-10-23] MEDS ORDERED: ONDANSETRON HCL INJ 2MG/ML 2ML 2 MG/ML VIAL ONE (13:49)
[2019-10-23] MEDS ORDERED: ASPIRIN 81 MG CHEW TAB ONE (13:49)
[2019-10-23 13:50] LABS: BASOPHILS # (AUTO) 0.1 (0.0-0.1); BASOPHILS % 0.5 % (0.0-1.0); EOSINOPHILS # (AUTO) 0.4 (0.0-0.4); EOSINOPHILS % 2.6 % (0.0-6.0); HEMATOCRIT 41.8 % (38.2-49.6); HEMOGLOBIN 13.5 g/dL (14.0-18.0); LYMPHOCYTES # (AUTO) 2.1 (1.0-3.2); LYMPHOCYTES % 14.3 % (18.0-39.1); MEAN CORPUSCULAR HEMOGLOBIN 28.7 pg (28-32); MEAN CORPUSCULAR HGB CONC 32.3 g/dL (31-35); MEAN CORPUSCULAR VOLUME 88.7 fL (81-99); MONOCYTES # (AUTO) 1.1 (0.2-0.8); MONOCYTES % 7.4 % (4.4-11.3); NEUTROPHILS # (AUTO) 11.1 (2.1-6.9); NEUTROPHILS % 74.7 % (38.7-80.0); PLATELET COUNT 475 x10e3/uL (140-360); RED BLOOD COUNT 4.71 x10e6/uL (4.3-5.7); RED CELL DISTRIBUTION WIDTH 13.3 % (11.7-14.4)
[2019-10-23] MEDS ORDERED: MORPHINE SULFATE INJ 4 MG/ML INJ 1ML ONE (13:52)
[2019-10-23] MEDS ORDERED: CLOPIDOGREL BISULFATE 75 MG TAB PO STA (13:52)
[2019-10-23] MEDS: MORPHINE SULFATE INJ 4 MG/ML INJ 1ML IV PRN ×3 (13:53→20:05)
[2019-10-23] MEDS ORDERED: HEPARIN SOD (PORCINE) 5,000 UNIT/ML VIAL IV ONE (14:00)
[2019-10-23] MEDS ORDERED: HEPARIN SOD (PORCINE) 1000 UNIT/ML 30ML ONE (14:00)
[2019-10-23] MEDS ORDERED: MIDAZOLAM HCL 2 MG/2 ML VIAL ONE (14:00)
[2019-10-23] MEDS ORDERED: LIDOCAINE HCL 2% LOCAL 20 ML VIAL ONE (14:01)
[2019-10-23] MEDS ORDERED: FENTANYL CITRATE/PF 100MCG/2 ML INJ ONE (14:01)
[2019-10-23] MEDS ORDERED: NITROGLYCERIN/D5W 200 MCG/ML 250 ML ONE (14:02)
[2019-10-23] MEDS ORDERED: IOPAMIDOL 370 MG/ML 200 ML INFUS..BTL INJ ONE (14:02)
[2019-10-23] MEDS ORDERED: SODIUM CHLORIDE 0.9% 1000ML 1,000 ML ONE (14:02)
[2019-10-23] MEDS ORDERED: HEPARIN SOD/SOD CHLORIDE 2,000 ML ONE (14:02)
[2019-10-23 14:10] LABS: ALANINE AMINOTRANSFERASE 46 IU/L (0-55); ALBUMIN/GLOBULIN RATIO 0.8 (0.8-2.0); ALKALINE PHOSPHATASE 110 IU/L (40-150); ANION GAP 12.4 mmol/L (8-16); BLOOD UREA NITROGEN 12 mg/dL (7-26); BUN/CREATININE RATIO 17 (6-25); CALCIUM 8.4 mg/dL (8.4-10.2); CARBON DIOXIDE 24 mmol/L (22-29); CHLORIDE 105 mmol/L (98-107); CREATINE KINASE 349 IU/L (30-200); CREATININE, SERUM 0.71 mg/dL (0.72-1.25); EST GLOMERULAR FILTRATION RATE > 60 ML/MIN (60-); GLUCOSE 97 mg/dL (74-118); POTASSIUM 4.4 mmol/L (3.5-5.1); SODIUM 137 mmol/L (136-145)
--- NOTE | 2019-10-23 17:31 | NUR ---
patient admitted to icu post cath intervention after arriving to ER with chest pain that started last night. pt A&Ox3. calm. denies pain at this time. room air. vital signs wnl and stable. right groin dsg c,d,i. soft, no evidence of hematoma. patient able to sit up in bed at this time.
--- NOTE | 2019-10-23 18:05 | Diagnostic Imaging Report ---
EXAMINATION: CHEST SINGLE (PORTABLE) COMPARISON: Chest x-ray 10/07/2019 INDICATION: STEMI ^ERMD ORDER ^[id number] ^1732 ^Y DISCUSSION: Frontal view of the chest obtained at 1739 hours. HEART AND MEDIASTINUM: The heart is top normal in size. Pulmonary vascular markings are normal. LINES: None. LUNGS: The lungs are well inflated and clear. No pneumonia or pulmonary edema. PLEURA: No pleural effusion or pneumothorax. BONES AND SOFT TISSUES: No focal osseous lesion. The soft tissues are normal. IMPRESSION: No acute cardiopulmonary disease. Signed by: Dr. Victorino Orantes MD on 10/23/2019 6:02 PM
--- NOTE | 2019-10-23 19:20 | Operative Report ---
DATE OF PROCEDURE: SURGEON: Jeramie Rao DO PROCEDURES PERFORMED: 1. Conscious sedation 30 minutes. 2. Selective coronary angiography x2. 3. Left heart catheterization. PREPROCEDURE DIAGNOSIS: Abnormal echocardiogram. POSTOPERATIVE DIAGNOSIS: Abnormal echocardiogram. ESTIMATED BLOOD LOSS: Less than 20 mL. SPECIMENS REMOVED: None. PROCEDURE IN DETAIL: The patient was found to have diffuse concave ST elevations with possible STEMI concerns by the ER physician. He was brought to the mill laborer urgently. He received fentanyl and midazolam. A 2% lidocaine was infiltrated over the right anterior groin for local anesthesia. Using micropuncture needle, the right common femoral artery was accessed via modified Seldinger technique and a 6-Syriac sheath was placed. Next, diagnostic coronary angiography and left heart catheterization was performed using a JL4 and 3DRC catheters. The patient was found to have no significant obstructive coronary artery disease. The patient tolerated the procedure well with no immediate complications. He was transported back to his room in stable condition. Hemostasis was achieved via Mynx device. PROCEDURAL FINDINGS: 1. Left main coronary artery is patent without significant disease. 2. Left anterior descending coronary artery is patent and has one diagonal branch without significant obstructive disease. 3. The ramus intermedius coronary is a large vessel without obstructive disease. 4. Left circumflex coronary artery is a dominant system on left posterior descending coronary artery in addition to the two other large obtuse marginal vessels without obstructive disease. 5. Right coronary artery is small nondominant without disease. 6. Left ventricular end-diastolic pressure is 5 mmHg with no aortic valve gradient present upon pullback. IMPRESSION: Abnormal electrocardiogram with normal coronary arteries. RECOMMENDATIONS: The patient is to be treated for viral mild pericarditis. Jeramie Rao DO BM/MODL /[id number]
[2019-10-23] MEDS ORDERED: MORPHINE SULFATE 2 MG/ML SYR 1ML IV PRN (21:00)
[2019-10-23 21:15] LABS: AMPHETAMINES SCREEN,URINE NEGATIVE (NEGATIVE); BENZODIAZEPINES SCREEN,URINE NEGATIVE (NEGATIVE); PHENCYCLIDINE SCREEN,URINE NEGATIVE (NEGATIVE)
[2019-10-23] MEDS ORDERED: MORPHINE SULFATE INJ 4 MG/ML INJ 1ML IV PRN (21:45)
[2019-10-23] MEDS: SODIUM CHLORIDE 0.9% 1000ML 1,000 ML IV SCH (22:25)
[2019-10-23] MEDS: ASPIRIN 325 MG TAB EC PO SCH (22:25)
--- NOTE | 2019-10-23 22:50 | NUR ---
Pt placed on tele per orders. Report called to Milton Naylor RN and pt transferred to 294
--- NOTE | 2019-10-23 23:00 | NUR ---
Patient received to room 294 via wheelchair from icu. vss. no c/o pain noted. dressing to right groin c,d,i. trochar sites to abd c,d,i with slight redness. call youngblood placed within reach and patient instructed to call for assistance when needed.
[2019-10-23] MEDS: MELATONIN 5 MG TABLET PO PRN (23:57)
--- NOTE | 2019-10-24 02:16 | History and Physical ---
CHIEF COMPLAINT: Chest pain. HISTORY OF PRESENT ILLNESS: A 49-year-old male, who recently was admitted and underwent a laparoscopic cholecystectomy due to acute cholecystitis and also found to have type A and type B flu positive, was discharged, now presents with acute onset of chest pain that began since yesterday. The patient has a history of cocaine abuse. Of note he states the last time he used cocaine was a month ago, but according to the records, his UDS was positive back on October 06 for cocaine. The patient reports using cocaine at that time for pain. He denies any drug abuse since that time. He reports that he was in his normal usual state of health, then suddenly began to have left-sided chest pain that radiated to his left shoulder and arm. The patient initially did not think much of it and went to sleep and woke up this morning with severe chest pain. While here, the patient was found to have elevated diffuse ST elevations concerning for STEMI and with elevated troponins in which a code STEMI was called and Cardiology took the patient straight to the lab coordinator. Left heart catheterization report shows no evidence of any obstruction, but there was some concern for underlying viral mild pericarditis. No PCI was indicated. The patient was seen and evaluated at bedside on the medical floor. He is currently doing well with no other issues at this time. I discussed the findings with the patient at bedside with the nurse present. REVIEW OF SYSTEMS: Pertinent positives: Chest pain. The rest of 14-point review of systems have been reviewed with the patient and are negative. ALLERGIES: NO KNOWN DRUG ALLERGIES. HOME MEDICATIONS: He takes none. PAST MEDICAL HISTORY: History of chronic cocaine abuse in the past, recent cholecystectomy, recent flu positive. PAST SURGICAL HISTORY: Recent laparoscopic cholecystectomy. FAMILY HISTORY: Hypertension and diabetes. SOCIAL HISTORY: Positive for cocaine. He does have a history of cocaine usage and occasional alcohol, occasional smoking. Does not work. PHYSICAL EXAMINATION: VITAL SIGNS: Temperature is 98.3, pulse 99, respiratory rate is 20. Blood pressure is 95/61 this evening at 2000 hours prior to that it was 110/68. Pulse ox 100% on room air. GENERAL: Not in acute distress. Alert and oriented x3. Cooperative on examination. HEENT: Head is normocephalic, atraumatic. Eyes; pupils are equal, round, and reactive to light bilaterally. Extraocular movements are intact bilaterally. Throat; no evidence of erythema or exudates in the posterior pharynx. Has poor dentition. NECK: Supple. Good range of motion throughout. PULMONARY: Clear to auscultation bilaterally. No wheezing, rales, or rhonchi. No crackles appreciated. CARDIOVASCULAR: Positive S1, S2. No murmurs, rubs, or gallops appreciated. ABDOMEN: Soft, nondistended, and nontender to palpation. Bowel sounds present. SKIN: Intact. Warm to touch. Good cap refill. PSYCHIATRIC: Normal affect and mood. EXTREMITIES: No edema. Good range of motion throughout. NEUROLOGIC: There is no evidence of any neurologic deficits on exam. LABORATORY FINDINGS: Show white count was 14.9, hemoglobin 13.5, hematocrit 41.8, platelets of 475. Sodium 137, potassium 4.4, chloride 105, bicarb 24, anion gap of 12, BUN is 12, creatinine is 0.71. LFTs shows a total bilirubin was 0.5, AST 59, ALT 46, alkaline phosphatase is 110. CK is 272. CK-MB was 29, then 22. Troponins 5.6, then 6.9. BNP 130. Total protein 6.9, albumin is 3. Serologies; coronavirus PCR pending. Microbiology, none. IMAGING STUDIES: Chest x-ray shows no acute cardiopulmonary disease. EKG shows diffuse ST elevation throughout. IMPRESSION: 1. Chest pain secondary to acute mild pericarditis. 2. Chronic drug abuse. 3. Recent status post laparoscopic cholecystectomy. 4. Leukocytosis likely secondary to underlying pericarditis and stressed induced. PLAN: At this time, the patient had elevated troponin and CK-MB. Code STEMI was called. The patient was taken straight to the lab coordinator, showed no evidence of any obstruction and no PCI was indicated, but it was felt that the patient likely has some viral mild pericarditis. EKG was consistent with pericarditis. At this time, Cardiology is treating the patient for underlying pericarditis with full doses of aspirin 650 mg p.o. q.8 hours. The patient is stable. He could be transferred from the ICU to the medical floor on tele. I will go ahead and get a urine drug screen, which was not performed. The patient did have a recent flu A and B positive, which could be explaining his underlying viral pericarditis on today's presentation. There are no home medications for me to resume. He is already on full-dose aspirin. I will put him on mild pain control. Regular heart healthy diet. We will get a urine drug screen. I discussed this plan of care with the nursing staff as well at bedside in the ICU. A 2D echo has been performed. MD NURY Dunbar/MODL /[id number]
[2019-10-24 04:00] VITALS: BP 86/52
[2019-10-24] MEDS: ASPIRIN 325 MG TAB EC PO SCH ×3 (05:10→23:15)
[2019-10-24 06:43] LABS: BASOPHILS # (AUTO) 0.1 (0.0-0.1); EOSINOPHILS # (AUTO) 0.3 (0.0-0.4); EOSINOPHILS % 3.6 % (0.0-6.0); HEMATOCRIT 40.7 % (38.2-49.6); LYMPHOCYTES # (AUTO) 2.2 (1.0-3.2); MEAN CORPUSCULAR HEMOGLOBIN 28.1 pg (28-32); MEAN CORPUSCULAR HGB CONC 31.9 g/dL (31-35); MEAN CORPUSCULAR VOLUME 87.9 fL (81-99); MONOCYTES # (AUTO) 0.6 (0.2-0.8); MONOCYTES % 6.3 % (4.4-11.3); NEUTROPHILS # (AUTO) 5.9 (2.1-6.9); NEUTROPHILS % 64.5 % (38.7-80.0); PLATELET COUNT 443 x10e3/uL (140-360); RED BLOOD COUNT 4.63 x10e6/uL (4.3-5.7); RED CELL DISTRIBUTION WIDTH 13.4 % (11.7-14.4)
[2019-10-24 07:10] LABS: CREATINE KINASE MB 8.3 ng/mL (0-5.0)
[2019-10-24 07:22] LABS: CHOL/HDL RATIO 2.6 (3.9-4.7)
[2019-10-24 07:28] LABS: ALANINE AMINOTRANSFERASE 240 IU/L (0-55); ALBUMIN 2.6 g/dL (3.5-5.0); ALBUMIN/GLOBULIN RATIO 0.7 (0.8-2.0); ALKALINE PHOSPHATASE 175 IU/L (40-150); BLOOD UREA NITROGEN 8 mg/dL (7-26); BUN/CREATININE RATIO 11 (6-25); CALCIUM 8.6 mg/dL (8.4-10.2); CARBON DIOXIDE 24 mmol/L (22-29); CHLORIDE 107 mmol/L (98-107); EST GLOMERULAR FILTRATION RATE > 60 ML/MIN (60-); GLUCOSE 80 mg/dL (74-118); SODIUM 137 mmol/L (136-145)
[2019-10-24 08:10] VITALS: BP 92/55
[2019-10-24 08:33] VITALS: BP 92/55
--- NOTE | 2019-10-24 09:17 | Consultation ---
DATE OF CONSULTATION: HISTORY OF PRESENT ILLNESS: This is a 49-year-old man with a history of cocaine use and recent diagnosis of cholecystitis and influenza, who underwent cholecystectomy in September of this year. He presented to emergency department with intermittent stuttering chest pain described centrally located. No radiation, occasionally pressure and sharp like. No associated shortness of breath, palpitations, lightheadedness, dizziness, or syncopal events. In the ER, he was found to have an electrocardiogram that showed concave ST elevations relatively diffusely with some CA depression. Cardiac catheterization was performed urgently and he was found to have normal coronary arteries without obstruction. REVIEW OF SYSTEMS: A 12-point review of system was conducted, is negative except as stated above in the HPI. PAST MEDICAL HISTORY: As stated above in the HPI. PAST SURGICAL HISTORY: Cholecystectomy. PAST FAMILY HISTORY: Noncontributory to current illness. SOCIAL HISTORY: Prior cocaine abuse. No other drugs, alcohol, or tobacco. ALLERGIES: NO KNOWN DRUG ALLERGIES. MEDICATIONS: See medications reconciliation form. PHYSICAL EXAMINATION: VITAL SIGNS: Temperature is 97.4, heart rate 73, respirations 16, blood pressure is 105/75, oxygen saturation is 100% on room air. GENERAL: Well appearing, well built, in no apparent distress. Alert and oriented x3. HEAD: Normocephalic and atraumatic. EYES: The extraocular muscles are intact. Conjunctivae clear. NECK: No JVD. No bruits. CARDIOVASCULAR: Regular rate and rhythm. LUNGS: Clear to auscultation. ABDOMEN: Soft, nontender, and nondistended. EXTREMITIES: No clubbing, cyanosis, or edema. VASCULAR: 2+ pulses. SKIN: Warm, dry, and intact. NEUROLOGIC: No focal deficits noted. Cranial nerves intact, grossly normal. IMAGING DATA: A 12-lead electrocardiogram showed normal sinus rhythm with concave ST elevations. LABORATORY DATA: Shows white blood cell count of 14.9. His total creatine kinase is 349. His CK-MB is 29.9, troponin is 5.6, BNP is 130. IMPRESSION: 1. Mild pericarditis, likely viral. 2. Abnormal electrocardiogram. 3. History of cocaine abuse. 4. Leukocytosis. 5. Thrombocytosis. RECOMMENDATIONS: The patient was found to have no significant obstructive coronary artery disease. His EKG is likely related to a pericarditis. His cardiac enzymes elevation is likely related to a myocarditis. Check influenza and viral serologies again. We will start on high-dose aspirin. We will check an echocardiogram. We will continue to follow clinically. DO LILA Dong/EMMANUEL /[id number]
[2019-10-24 13:17] VITALS: BP 86/52
--- NOTE | 2019-10-24 15:16 | NUR ---
Nutrition Screen Note RD Recommendation for Physician: -Continue current diet as ordered Plan of Care: RD following, monitoring for tolerance and adequacy Nutrition reason for involvement: Nutrition Risk Trigger MST 2 Primary Diagnose(s): STEMI PMH: chronic cocaine abuse in past, recurrent cholecystectomy, recent flu positive Ht: 67 in Wt:158 lb BMI: 24.8 kg/m2 IBW:[address] Assessment: (10/24/19) Chart reviewed. Labs and meds reviewed. Pt is a 49 year old male admitted with STEMI. Pt reports a good appetite with PO intake >50% of meals. Per weight history, pt weighed 154-155 lbs on previous admission in September 2019. Pt currently has a weight of 158 lbs in chart; therefore, pts weight has been stable since last admission. No N/V/D/C or chewing/swallowing issues. Will continue to monitor. Current Diet: cardiac diet Malnutrition Evaluation (10/24/19) The patient does not meet criteria for a specified degree of malnutrition at this time. Will re-evaluate at follow-up as appropriate. Diet Education Needs Assessment: Pt declined diet education at time of visit Nutrition Care Level: low Signed: Ira Rubin, RD, LD
[2019-10-24] MEDS: SODIUM CHLORIDE 0.9% 1000ML 1,000 ML IV SCH ×2 (16:20→19:10)
[2019-10-24 16:32] VITALS: BP 99/57
--- NOTE | 2019-10-24 16:33 | Progress Note ---
DATE: 10/24/2019 Medicine Progress Note SUBJECTIVE: The patient is doing much better today with no complaints. No evidence of any chest pain. Ultrasound of the heart has been performed. Cardiology has not evaluated the patient. PHYSICAL EXAMINATION: VITAL SIGNS: Temperature is 96.9, pulse is 50, respiratory rate is 19, blood pressure last recorded 86/52, but he is asymptomatic. He saturating 99%, he is on room air. He has no complaints at this time. GENERAL: Not in acute distress. Alert and oriented x3. PULMONARY: Clear to auscultation bilaterally. No wheezing, rales, or rhonchi. No crackles appreciated. CARDIOVASCULAR: Positive S1, S2. No murmurs, rubs, or gallops appreciated. ABDOMEN: Soft, nondistended, and nontender to palpation. Bowel sounds present. MUSCULOSKELETAL: Strength is 5/5 throughout. No evidence of any muscle deficits on examination. No weakness appreciated. SKIN: Intact. Warm to touch. Good cap refill. PSYCHIATRIC: Normal affect and mood. EXTREMITIES: No edema. Good range of motion throughout. LABORATORY DATA: Labs show white count of 9.0, hemoglobin 13, hematocrit 41, platelets of 443. Chemistry; sodium 137, potassium 4, chloride 107, bicarb 24, anion gap of 10, BUN is 8, creatinine is 0.7. His glucose is 80, calcium 8.6, total bilirubin was 0.8, AST 222, ALT 240, alkaline phosphatase is 175, all elevated. CRP is pending. Sed rate is 42. Urine drug screen positive for opioids, but could be the opiates we gave him. Coronavirus PCR negative. MICROBIOLOGY: None. IMAGING STUDIES: 2D echo is pending. IMPRESSION: 1. Acute viral pericarditis. 2. Chest pain secondary to acute viral pericarditis. 3. Chronic drug abuse with cocaine. 4. Recent status post laparoscopic cholecystectomy. 5. Leukocytosis-resolved. PLAN: At this time, continue with high doses of aspirin. A 2D echo has been performed. Await final results from the 2D echo and Cardiology is following. His urine drug screen just positive for the opioids, but likely from the medications we have given him here. This could be underlying from flu A and B that led to this particular pericarditis. His LFTs are slightly elevated. We will repeat in the morning, could be secondary to hypotension. His blood pressure is relatively low at this current moment, but he is asymptomatic, doing well. Hold all antihypertensive medications. Otherwise, we will put on Lovenox for DVT prophylaxis. MD NURY Dunbar/MODL /[id number]
[2019-10-24] MEDS ORDERED: ENOXAPARIN 30 MG/0.3 ML SYR SC SCH (17:00)
[2019-10-24 20:00] VITALS: BP 100/55
[2019-10-25] VITALS (7 sets, daily range): BP systolic 92–102; BP diastolic 50–57
[2019-10-25] MEDS: MELATONIN 5 MG TABLET PO PRN (00:57)
[2019-10-25] MEDS: ASPIRIN 325 MG TAB EC PO SCH ×2 (06:30→14:02)
[2019-10-25 06:51] LABS: BASOPHILS # (AUTO) 0.1 (0.0-0.1); EOSINOPHILS # (AUTO) 0.3 (0.0-0.4); EOSINOPHILS % 4.2 % (0.0-6.0); HEMATOCRIT 40.1 % (38.2-49.6); HEMOGLOBIN 12.7 g/dL (14.0-18.0); LYMPHOCYTES # (AUTO) 2.4 (1.0-3.2); LYMPHOCYTES % 32.2 % (18.0-39.1); MEAN CORPUSCULAR HEMOGLOBIN 28.5 pg (28-32); MEAN CORPUSCULAR HGB CONC 31.7 g/dL (31-35); MEAN CORPUSCULAR VOLUME 90.1 fL (81-99); MONOCYTES # (AUTO) 0.5 (0.2-0.8); MONOCYTES % 6.4 % (4.4-11.3); NEUTROPHILS # (AUTO) 4.1 (2.1-6.9); NEUTROPHILS % 55.8 % (38.7-80.0); PLATELET COUNT 382 x10e3/uL (140-360); RED BLOOD COUNT 4.45 x10e6/uL (4.3-5.7); RED CELL DISTRIBUTION WIDTH 13.2 % (11.7-14.4)
[2019-10-25 07:24] LABS: ALANINE AMINOTRANSFERASE 131 IU/L (0-55); ALBUMIN 2.5 g/dL (3.5-5.0); ALBUMIN/GLOBULIN RATIO 0.7 (0.8-2.0); ALKALINE PHOSPHATASE 144 IU/L (40-150); BLOOD UREA NITROGEN 11 mg/dL (7-26); BUN/CREATININE RATIO 15 (6-25); CALCIUM 8.4 mg/dL (8.4-10.2); CARBON DIOXIDE 22 mmol/L (22-29); CHLORIDE 110 mmol/L (98-107); CREATININE, SERUM 0.71 mg/dL (0.72-1.25); EST GLOMERULAR FILTRATION RATE > 60 ML/MIN (60-); GLUCOSE 89 mg/dL (74-118); SODIUM 139 mmol/L (136-145)
[2019-10-25] MEDS ORDERED: PANTOPRAZOLE SOD 40 MG TABEC PO SCH (07:30)
[2019-10-25] MEDS: SODIUM CHLORIDE 0.9% 1000ML 1,000 ML IV SCH (08:40)
[2019-10-25] MEDS ORDERED: PANTOPRAZOLE SO40 MG PO (13:57)
[2019-10-25] MEDS ORDERED: ASPIRIN325 MG PO (13:57)
--- NOTE | 2019-10-25 14:30 | NUR ---
Pt discharged home at this time. Pt is aox3 and able to verbalize needs at time of discharge. Pt denies any pain at this time. Pt verbalized understanding of all discharge instructions and follow up appointments. Pt was discharged with two prescriptions and pt verbalized understanding of medication administration.
--- NOTE | 2019-10-26 04:54 | Discharge Summary ---
FINAL DISCHARGE DIAGNOSES: 1. Acute mild pericarditis, likely to be viral in nature. 2. History of chronic cocaine abuse. 3. Status post laparoscopic cholecystectomy. 4. Leukocytosis likely to be stressed induced-resolved. 5. Recent influenza A/B positive. CONSULTANTS: Cardiology. PHYSICAL EXAMINATION: VITAL SIGNS: Temperature is 96.1, pulse 59, respiratory rate is 20, blood pressure 102/50. He is asymptomatic, seems to have chronic hypotension. Pulse ox 97% on room air. LABORATORY FINDINGS: Show white count 7.3, hemoglobin is 12, hematocrit 40, platelets of 382,000. Chemistry; sodium 139, potassium 4, chloride 110, bicarb 22, anion gap of 11, BUN is 11, creatinine is 0.71, total bilirubin is 0.4, AST is 72, ALT was 131, alkaline phosphatase 144. His troponins on admission were 5.6, 6.9 and 6.3. Albumin was 2.5. LDL was 58. Toxicology screen shows urine drug screen positive for opioids, this urine drug screen was collected later after pain medicines were given. Coronavirus was found to be not detectable. Microbiology, none. IMAGING STUDIES: Chest x-ray shows no acute cardiopulmonary disease. HOSPITAL COURSE: A 49-year-old male was recently in the hospital after having a laparoscopic cholecystectomy, comes into the ED with complaints of acute onset of chest pain. The patient on admission to the ED was found to have elevated ST elevations concerning for STEMI in which a code STEMI was called. Cardiology was consulted. The patient was taken emergently to the distillery laborer. The patient had a left heart catheterization with an angiogram that did not show any disease and did not need any PCI. It was felt that the underlying etiology of his diffuse ST elevations on EKG was due to pericarditis. The patient was recently diagnosed with influenza A/B positive while here in the hospital stay approximately two weeks ago in which he had his laparoscopic cholecystectomy at that time. It was felt that the underlying etiology of his pericarditis could be from the influenza that he had two weeks ago. The patient is currently doing well with no complaints. The patient was started on high doses of aspirin and will continue with that regimen, aspirin 650 mg p.o. t.i.d. x5 more days as per Cardiology recommendations. Initially, the patient was in the ICU, then transferred to the medical floor. The patient improved throughout the hospital course with no complaints of any chest pain. He was back to normal baseline with no other issues. I discussed this case with Cardiology and he cleared the patient for discharge to home with five more days of high doses of aspirin with close followup in their office in 1 to 2 weeks' time. On the day of discharge, vital signs were stable, labs reviewed and stable. The patient is seen and evaluated and examined thoroughly on the day of discharge, no other complaints. The patient verbalized understanding and agrees to plan of care to follow up as an outpatient with the primary care physician in 1 week and tool rental technician in 1 to 2 weeks' time. MEDICATIONS: See med reconciliation form. DISPOSITION: Home. CONDITION: Stable. DIET: Heart healthy. In the event of any worsening symptoms, the patient advised to come back to the ED for further evaluation. Discharge summary took greater than 35 minutes. MD NURY Dunbar/EMMANUEL /[id number]
--- NOTE | 2019-10-27 09:53 | Progress Note ---
DATE: Cardiology progress note. END OF REPORT TITLE: SUBJECTIVE: The patient reports chest pain overnight, but none today. Denies any shortness of breath. OBJECTIVE: VITAL SIGNS: Temperature is 96.4, heart rate 65, respirations are 19, blood pressure is 99/57 oxygen saturation 98% on room air. GENERAL: Well-appearing in no apparent distress. CARDIOVASCULAR: Regular rate and rhythm. LUNGS: Clear to auscultation. ABDOMEN: Soft, nontender, nondistended. EXTREMITIES: No clubbing, cyanosis, or edema. LABORATORY DATA: All laboratory data reviewed. IMPRESSION: 1. Viral myocarditis. 2. History of cocaine use. 3. Acute liver injury. 4. Thrombocytosis. RECOMMENDATIONS: Continue high-dose aspirin for anti-inflammatory effect. ESR was elevated. His liver enzymes have significantly risen. His troponin values and cardiac markers are downtrending. His echocardiogram showed preserved left ventricular systolic function with no significant pericardial effusion. The patient is stable for discharge from a cardiovascular standpoint. Workup of his acute liver injury per primary team. Jeramie Rao DO BM/MODL /[id number]
== END 2019-10-25 14:42 | disposition home or self-care (01) | DRG 286 ==
LOC: ER 13:15 → UNDOADMIN 13:44 → ERHOLD 13:44 → CATH LAB 14:52 → CATH LAB V 14:53 → ICU 15:21 → MED/SURG3 23:08
PROVIDERS: ADMIT Internal Medicine; ATTEND Internal Medicine
PROC: 4A023N7 Measurement of Cardiac Sampling and Pressure, Left Heart, Percutaneous Approach (ICD-10-PCS; principal; 2019-10-23)
PROC: B2111ZZ Fluoroscopy of Multiple Coronary Arteries using Low Osmolar Contrast (ICD-10-PCS; 2019-10-23)
PROC: B2151ZZ Fluoroscopy of Left Heart using Low Osmolar Contrast (ICD-10-PCS; 2019-10-23)
DX: I30.1 Infective pericarditis (principal); K72.00 Acute and subacute hepatic failure without coma; I30.8 Other forms of acute pericarditis; F14.10 Cocaine abuse, uncomplicated; Z90.49 Acquired absence of other specified parts of digestive tract; D47.3 Essential (hemorrhagic) thrombocythemia
CPT/HCPCS: 36415; 71045; 80053; 80061; 80307; 82550; 82553; 83880; 84484; 85025; 85651; 86140; 87635; 93005; 93306; 93458; 99152; 99153; C1760; C1769; J1644; J1650; J2001; J2250; J2270; J2405; J3010; J7030; Q9967

== ENCOUNTER 2022-10-22 23:25 | Observation (INO) | payer BC ==
[~2022-10-22] VITALS: Ht 170.2 cm; Wt 71.7 kg
[~2022-10-22 23:25] MED LIST changes: +ASPIRIN325 MG PO; +PANTOPRAZOLE SO40 MG PO
[2022-10-23] MEDS ORDERED: ONDANSETRON HCL INJ 2MG/ML 2ML 2 MG/ML VIAL IV STA (01:32)
[2022-10-23] MEDS ORDERED: SODIUM CHLORIDE 0.9% 1000ML 1,000 ML IV ONE (01:45)
[2022-10-23 01:51] LABS: BASOPHILS # (AUTO) 0.1 (0.0-0.1); BASOPHILS % 0.9 % (0.0-1.0); EOSINOPHILS # (AUTO) 0.3 (0.0-0.4); HEMATOCRIT 48.2 % (38.2-49.6); HEMOGLOBIN 16.1 g/dL (14.0-18.0); LYMPHOCYTES # (AUTO) 1.9 (1.0-3.2); LYMPHOCYTES % 19.1 % (18.0-39.1); MEAN CORPUSCULAR HEMOGLOBIN 29.7 pg (28-32); MEAN CORPUSCULAR HGB CONC 33.4 g/dL (31-35); MEAN CORPUSCULAR VOLUME 88.8 fL (81-99); MONOCYTES # (AUTO) 0.5 (0.2-0.8); MONOCYTES % 5.3 % (4.4-11.3); NEUTROPHILS # (AUTO) 6.9 (2.1-6.9); NEUTROPHILS % 71.1 % (38.7-80.0); PLATELET COUNT 227 x10e3/uL (140-360); RED BLOOD COUNT 5.43 x10e6/uL (4.3-5.7); RED CELL DISTRIBUTION WIDTH 13.7 % (11.7-14.4)
[2022-10-23 01:55] LABS: INR 0.9; PROTHROMBIN TIME 12.7 seconds (11.9-14.5)
[2022-10-23 02:03] LABS: ALBUMIN/GLOBULIN RATIO 1.1 (0.8-2.0); ANION GAP 14.1 mmol/L (8-16); CALCIUM 9.3 mg/dL (8.4-10.2); CREATININE, SERUM 0.9 mg/dL (0.72-1.25); POTASSIUM 4.1 mmol/L (3.5-5.1)
[2022-10-23] MEDS ORDERED: IOPAMIDOL 370 MG/ML 100 ML INFUS..BTL INJ ONE (02:35)
[2022-10-23] MEDS ORDERED: SODIUM CHLORIDE 0.9% 100 ML ONE (02:35)
[2022-10-23] MEDS ORDERED: ONDANSETRON HCL INJ 2MG/ML 2ML 2 MG/ML VIAL IV PRN (04:45)
[2022-10-23] MEDS: SODIUM CHLORIDE 0.9% 1000ML 1,000 ML IV SCH ×2 (04:57→14:23)
[2022-10-23 06:48] LABS: HEMATOCRIT 45.5 % (38.2-49.6); HEMOGLOBIN 15.1 g/dL (14.0-18.0)
[2022-10-23 18:20] LABS: HEMOGLOBIN 14.5 g/dL (14.0-18.0)
[2022-10-23 18:58] VITALS: BP 111/68
== END 2022-10-23 19:07 | disposition home or self-care (01) ==
LOC: ER 10-23 01:33 → ERHOLD 10-23 04:40
PROVIDERS: ADMIT Family Medicine; ATTEND Family Medicine
DX: K92.2 Gastrointestinal hemorrhage, unspecified (principal); R10.13 Epigastric pain; K74.60 Unspecified cirrhosis of liver; F17.200 Nicotine dependence, unspecified, uncomplicated; F14.21 Cocaine dependence, in remission; I25.2 Old myocardial infarction; I10 Essential (primary) hypertension; Z20.822 Contact with and (suspected) exposure to COVID-19; Z79.82 Long term (current) use of aspirin; Z90.49 Acquired absence of other specified parts of digestive tract
CPT/HCPCS: 36415; 74174; 80053; 84484; 85014; 85018; 85025; 85610; 85730; 86850; 86900; 93005; 99284; C9113; G0378; J2405; J7030; J7050; Q9967; U0002